=== PATIENT | male | born 1965 | race Caucasian/White ===

== ENCOUNTER 2018-09-13 07:54 | Outpatient (CLI) | payer OTHER ==
--- NOTE | 2018-09-13 10:10 | MRI ---
MRI BRAIN WITH AND WITHOUT CONTRAST: Date: 09/13/18 INDICATION: Left arm weakness with slurred speech. FINDINGS: Ventricular system is normal in size. Cavum septum pellucidum et vergae is present. There is no intra cranial hemorrhagic susceptibility or evidence of acute territorial infarction. The visualized skull base flow-voids are patent. There is no pathologic intra-axial enhancement. There is a partially empt y sella. There is vascular enhancement just cephalad to the left lateral ventricle within the medial left parietal lobe compatible with a developmental venous anomaly. IMPRESSION: No acute intracranial abnormalities. POS: [facility]
--- NOTE | 2018-09-13 10:34 | RAD ---
CERVICAL SPINE 4 VIEWS: (5 images total) INDICATION: Cervical stenosis. FINDINGS: There is very mild anterior translation of C5 on C6 and C6 on C7 that is accentuated with flexion but reduces with neutral and extension positioning. There is very mild multilevel facet osteoarthritic change at C5-6 and C6-7. Very subtle degenerative disk disease is seen at C5-6 and C6-7. Lateral ma sses are symmetrical. Lung apices are clear. IMPRESSION: Minimal anterior translation seen at C5-6 and C6-7 with flexion but with reduction on the extension a nd neutral position radiographs. There is mild cervical spondylosis. POS: [facility]
[2018-09-13] MEDS ORDERED: Gadobenate Dimeglumine 529 MG/1 ML (20ML VIAL) ONE (13:36)
== END 2018-09-13 07:55 | disposition home or self-care (01) ==
LOC: MRI 07:54
PROVIDERS: ATTEND Surgery
DX: R47.81 Slurred speech (principal); M48.02 Spinal stenosis, cervical region; M47.892 Other spondylosis, cervical region
CPT/HCPCS: 70553; 72050; A9579